=== PATIENT | female | born 1970 | race Caucasian/White ===

== ENCOUNTER 2021-11-15 15:32 | Emergency (ER) | payer MEDICARE ==
[~2021-11-15] VITALS: Ht 149.9 cm; Wt 61.7 kg
[~2021-11-15 15:32] MED LIST: ACETAMINOPHEN-1 EAC1 PO; ALLEGRA-D 24 H1 EACH PO; B12INJ IM; BACTRIM DS TAB1 EACH PO; BENTYL 10 MG CA10 M1 PO; BUSPIRONE HCL10 MG PO; CELEXA40 MG PO; EPITOL200 MG PO; GLIPIZIDE 10 MG10 MG PO; HYDROCODON-ACE1 EAC7 PO; KEFLEX500 MG PO; LANTUS100 UNIT/M SUBQ; LANTUSSOLASTAR SUBQ; LEVOTHYROXIN0.112 M1 PO; NOVOLOG100 UNIT/1; NOVOLOG100 UNIT/1 SUBQ; OMEPRAZOLE40 MG PO; PRAVACHOL20 MG PO; PROMS25 WY RECTAL; TRAMADOL 50 MG50 MG PO; TRAZODONE HCL50 MG PO; VANCOMYCIN100 MG/ML PO; VITAMIN D50000 UNIT PO; ZOFRAN ODT4 MG DISSOLVE; ZOFRAN ODT4 MG PO; [UNRECOGNIZED DRUG - OTHER]
[2021-11-15 16:00] LABS: ABSOLUTE LYMPHOCYTES 0.6 thou/uL (0.8-5.3); ABSOLUTE MONOCYTES 0.3 thou/uL (0.0-1.2); ABSOLUTE NEUTROPHILS 2.6 thou/uL (1.6-8.1); BASOPHILS 0.2 %; EOSINOPHILS 0.9 %; HEMATOCRIT 29.5 % (37.0-47.0); HEMOGLOBIN 9.2 gm/dL (12.0-15.0); LYMPHOCYTES 17.7 %; MCH 19.5 pg (26.0-34.0); MCHC 31.1 g/dL (28.0-37.0); MCV 62.9 fL (80.0-100.0); MPV 8.4 fl. (7.2-11.1); NUCLEATED RBCS 0 /100WBC; PLATELET COUNT* 190 thou/uL (150-400); POLYS 72.2 %; RBC 4.69 mil/uL (4.20-5.00); RDW-CV 15.5 % (10.5-14.5); WBC 3.7 thou/uL (4.0-11.0)
[2021-11-15 16:06] LABS: CALCIUM 7.9 mg/dL (8.5-10.1); CREATININE 1.1 mg/dL (0.6-1.3); POTASSIUM 3.8 mmol/L (3.5-5.1)
[2021-11-15 16:11] LABS: ALBUMIN 3.8 g/dL (3.4-5.0); TOTAL BILIRUBIN 0.3 mg/dL (<0.1-1.0); TOTAL PROTEIN 6.6 g/dL (6.4-8.2)
--- NOTE | 2021-11-15 16:21 | EKG ---
[place] [address] ELECTROCARDIOGRAM REPORT Name: MICHAEL PEREZCRYSTAL Knight Room: [facility]#: [id number] Admission: Attend Phys: Discharge: Date of : 72 Date of Service: 11/15/21 1541 Report #: [id number] THIS REPORT FOR: //name// [facility] ED Test Date: 2021-11-15 Test Time: 15:41:00 Pat Name: CRYSTAL PEREZ Department: Room: Gender: [employer]: : 1970 Requested By: Terence Guerra Order Number: [id number] MD: Alfredo Chowdhury Measurements Intervals [place] Rate: 75 P: 59 [place]: 176 QRS: 7 QRSD: 94 T: -4 QT: 349 QTc: 390 Interpretive Statements Sinus rhythm Low voltage, precordial leads Minor nonspecific ST-T alterations No previous ECG available for comparison Electronically Signed On 11-15-2021 16:20:58 INTERN RETAIL by Alfredo Chowdhury [email or web address] <ELECTRONICALLY SIGNED> By: Alfredo Chowdhury MD, MERGED WITH [facility] 11/15/21 1620 1541 1541 Alfredo Chowdhury MD, FAC /EPI
[2021-11-15 16:28] LABS: PLATELET ESTIMATE ADEQUATE
[2021-11-15 16:29] LABS: ANISOCYTOSIS 2+; HYPOCHROMASIA 1+; MICROCYTES 2+
[2021-11-15 18:30] VITALS: BP 115/47
== END 2021-11-15 18:30 | disposition home or self-care (01) ==
LOC: M.ERS 15:32
PROVIDERS: Emergency Medicine Emergency Medical Services
DX: I95.1 Orthostatic hypotension (principal); E11.9 Type 2 diabetes mellitus without complications; K31.84 Gastroparesis; F41.9 Anxiety disorder, unspecified; F31.9 Bipolar disorder, unspecified; Z98.890 Other specified postprocedural states; Z98.51 Tubal ligation status; Z79.899 Other long term (current) drug therapy; Z88.2 Allergy status to sulfonamides; Z88.0 Allergy status to penicillin; Z88.8 Allergy status to other drugs, medicaments and biological substances; Z87.891 Personal history of nicotine dependence